=== PATIENT | female | born 1945 | race Caucasian/White ===

== ENCOUNTER → 2018-03-02 | Outpatient (REF) | payer MEDICARE, BC ==
[~2018-03-02] MED LIST: ASPI-1471 PO; ATOR20TA65 PO; ATOR40TA69 PO; CITA-137 PO; DIAZ-308 PO; DIPH0.5D12 IM; FLU45SYR17 IM; HYDR-4225 PO; LISI-362 PO; LISI20TA29 PO; LISI5TAB25 PO; LUTE20CA11 PO; METF-450 PO; METF500T4 PO; METO-253 PO; MULT-976 PO; NIAC500T85 PO; OMEG-11 PO; OMEG-47 PO; PNEU0.5D3 IM; SERT-181 PO; SIMV-54 PO; UBID100C26 PO; VIT-9 PO
== END ==
LOC: ZZSENDIN 09:59
PROVIDERS: ATTEND Internal Medicine
DX: R19.7 Diarrhea, unspecified (principal)
CPT/HCPCS: 83630; 87045; 87177; 87269; G0328; 82274